=== PATIENT | female | born 1960 | race Caucasian/White ===

== ENCOUNTER 2016-07-19 19:01 | Emergency (ER) | payer BC ==
[~2016-07-19] VITALS: Ht 180.3 cm; Wt 80.1 kg
[~2016-07-19 19:01] MED LIST: CYCLOBENZAPRINE10 MG PO; LO-DOSE ASPIRIN81 M1 PO; METOPROLOL TART25 MG PO; MOTRIN600 MG PO; MULTIPLE VITAM1 EACH PO; NITROSTAT0.4 MG SL; ROXICET 5-3251 EACH PO; TOPROL XL25 MG PO; VITAMIN D31000 UNI2 PO
[2016-07-19 20:44] VITALS: BP 127/85
== END 2016-07-19 20:45 | disposition home or self-care (01) ==
LOC: EME 19:01
DX: I80.02 Phlebitis and thrombophlebitis of superficial vessels of left lower extremity (principal)
CPT/HCPCS: 93971; 99281; 99284

== ENCOUNTER 2016-08-07 16:37 | Emergency (ER) | payer BC ==
[~2016-08-07] VITALS: Ht 180.3 cm; Wt 81.0 kg
[2016-08-07 17:09] LABS: HEMATOCRIT 39.2 % (36.0-46.0); MCH 30.3 PG (29.0-34.0); MCHC 33.7 G/DL (30.0-36.0); MCV 89.9 FL (83-99); MEAN PLAT.VOLUME 9.8 uM^3 (9.5-12.4); PLATELET COUNT 298 K/uL (156-360); RBC DIS.WIDTH-SD 39.7 % (39-53); RED BLOOD COUNT 4.36 M/uL (3.80-5.20); WHITE BLOOD COUNT 8.8 K/uL (4.1-10.2)
[2016-08-07 17:21] LABS: CHLORIDE 109 mEq/L (99-109); POTASSIUM 3.6 mEq/L (3.7-5.4); SODIUM 142 mEq/L (136-147)
[2016-08-07 17:23] LABS: GLUCOSE 112 mg/dL (70-99)
[2016-08-07 17:24] LABS: ANION GAP 11 MEQ/L (2-14)
[2016-08-07 17:27] LABS: GFR ESTIMATE (CALCULATED) > 59 mL/min/; UREA NITROGEN (BUN) 21 mg/dL (9-23)
[2016-08-07 18:34] LABS: D-DIMER ELISA 0.55 mg/L FEU (< 0.57)
[2016-08-07 18:44] LABS: TROP-I INTERPRETATION NEGATIVE; TROPONIN-I < 0.01 ng/mL (0.0-0.30)
[2016-08-07] MEDS ORDERED: ZITHROMAX250 MG PO (21:29)
[2016-08-07 21:57] VITALS: BP 122/74
== END 2016-08-07 21:58 | disposition home or self-care (01) ==
LOC: EME 16:37
DX: J40 Bronchitis, not specified as acute or chronic (principal); R00.2 Palpitations; M54.9 Dorsalgia, unspecified; I10 Essential (primary) hypertension
CPT/HCPCS: 71020; 71275; 80048; 84484; 85027; 85379; 93005; 99281; 99284; J7040; J8540